=== PATIENT | male | born 1990 | race Two or more races ===

== ENCOUNTER 2016-12-09 16:33 | Emergency (ER) | payer MEDICAID ==
--- NOTE | 2016-12-09 16:58 | ED Physician Chart ---
Chief Complaint/HPI - Patient Information Date Seen:: 12/09/16 Time Seen:: 16:57 Chief Complaint:: SORE THROAT x2 DATS History of Present Illness:: This 26 sure male presents with a sore throat that started 2 days ago and has progressively become more severe. Rates the pain as a 8/10 in severity and swallowing makes the pain worse. Describes it as a burning sensation. Pain is not been accompanied by any fever or chills. Does have nasal congestion and he is noted that his voice is raspy. Patient has a mild cough which is productive of clear phlegm. He denies any hemoptysis, shortness of breath or chest pain. Allergies:: Allergies Allergy/AdvReac Type Severity Reaction Status Date / Time Penicillins [PCN] AdvReac Verified 12/09/16 16:45 Vitals:: Vital Signs - 8 hr 12/09/16 12/09/16 16:47 16:48 Temp 98.5 F HR 130 RR 18 BP 129/87 129/87 O2 Sat % 96 Review of Systems - Review of Systems General/Constitutional: No fever, No chills Skin: No skin lesions, No rash Head: No headache, No light-headedness Eyes: No loss of vision, No diplopia ENT: No earache, No nasal drainage, Sore throat, No tinnitus, Other (feels stopped up.) Neck: No neck pain, No swelling, No stiffness, Mass noted Cardio Vascular: No chest pain, No palpitations, No edema Pulmonary: No SOB, Cough, Sputum, Other (sputum was clear.) GI: No pain G/U: No dysuria, No frequency, No hematuria Musculoskeletal: No bone or joint pain, No back pain, No muscle pain Psychiatric: Prior psych history, No suicidal ideation Hematopoietic: No bruising, No lymphadenopathy Allergic/Immuno: No urticaria, No angioedema Neurological: No syncope, No focal symptoms, No weakness, No paresthesia, No headache, No seizure, No confusion, No vertigo Past Medical History - Past Medical History Past Medical History: No significant medical hx (NO DM, HTN, HD, COPD, CHF) Social History: Non Smoker, No Alcohol (SMOKES MARIJUANA), Surgical History: None Psychiatricy History: None Medication: None Family Medical History - Family Member Mother Ethnicity: Living Status: Still Living Hx Family Hypertension: Yes Hx Family Diabetes: Yes Physical Exam - Physical Examination General/Constitutional: Alert, Ambulatory Other Gen/Cons comments:: Mild distress, morbidly obese. Head: Atraumatic Eyes: Lids, conjuctiva normal, PERRL, EOMI Skin: Nl inspection, No rash, No skin lesions, No ecchymosis, Well hydrated, No lymphadenopathy ENMT: External ears, nose nl Other ENMT comments:: Swollen nasal mucosa. The patient has mild erythema of the posterior pharynx and both tonsils. There is no tonsillar exudate or significant enlargement. No peritonsillar fullness or masses. The patient's voice is mildly hoarse. Neck: Nontender, No JVD, No nuchal rigidity, No mass, No stridor Respiratory: Nl effort/Exclusion, Clear to Auscultation (MILD TO MODERATE TACHYCARDIA, REGULAR), No Wheeze/Rhonchi/Rales Cardio Vascular: No murmur, gallop, rubs, NL S1 S2 GI: No tenderness/rebounding/guarding, No organomegaly, No hernia, Nondistended , No mass/bruits, No McBurney tenderness Other GI comments:: RECTAL EXAM DEFERRED AT MY DISCRETION : No CVA tenderness Extremities: No tenderness or effusion, Full ROM, normal strength in all extremities, No edema Neuro/Psych: Alert/oriented, Normal sensory exam, Normal motor strength, Judgement/insight normal, Mood normal, Normal gait, No focal deficits Misc: Normal back, No paraspinal tenderness Labs/Radiology/EKG Results - Lab Results Results: NO LAB OR RADIOGRAPHIC STUDIES Assessment - Assessment General Assessment: CASE SUMMARY: This 26 year old male presented wtih is a two day history of sore throat which is progressively becoming more severe. Patient reported no history of fever or chills and no difficulty breathing. On physical examination the patient was morbidly obese and appeared to be in moderate distress from throat pain. Symptoms were addressed with 10 mg of dexamethasone and 6 mg of morphine administered IM. The patient experienced significant decrease in pain and normalization of his pulse rate. The patient was discharged with a prescription for Woodside 10/325 for further pain. He was given the usual precautions regarding mixing it with alcohol, driving within six hours and events requiring alertness. Patient was advised to return to the emergency department for any significant worsening of his symptoms, difficulty breathing or chest pain. MDM DDX FOR SORE THROAT: NOT kaylie-tonsillar abscess based on physical exam. NOT Lemierre's syndrome based on no tenderness along the margins of the SCM muscle. NOT Epiglottis based on history and physical examination. ED Septic Shock - . Is Septic Shock (SBP<90, OR Lactate>4 mmol\L) present?: No - <6hrs of presentation: Vital Signs: Vital Signs - 8 hr 12/09/16 12/09/16 16:47 16:48 Temp 98.5 F HR 130 RR 18 BP 129/87 129/87 O2 Sat % 96 Reassessment (Disposition) - Reassessment Reassessment Condition:: Improved - Diagnosis Diagnosis:: VIRAL PHARYNGITIS. - Aftercare/Follow up Instructions Aftercare/Follow-Up Instructions:: Counseled pt regarding lab results/diagnosis & need follow up, Refer to Discharge Instructions Medication Prescribed:: Discharged with Rx for Woodside 10/325, dispense 8, take one q6h prn severe pain. Don't take it with alcohol and don't take it within 6 hours of driving or activities requiring alertness. ED Discharge Plan - Patient Disposition Admit/Discharge/Transfer: PT DISCHARGED HOME Condition at Disposition: Stable Prescriptions: Hydrocodone/APAP 10 mg/325 mg [Woodside 10 mg/325 mg] 1 tab PO Q6H PRN #0 tab PRN Reason: Pain (Severe) Instructions: Viral Pharyngitis
[2016-12-09 17:11] VITALS: BP 129/87
[2016-12-09] MEDS ORDERED: Dexamethasone Sodium Phos 4 mg/mL Vial IM STA (17:13)
[2016-12-09] MEDS ORDERED: Dexamethasone Sodium Phos 10 mg/mL PF Vial ONE (17:17)
== END 2016-12-09 18:20 | disposition home or self-care (01) ==
LOC: ER 16:33
DX: J02.8 Acute pharyngitis due to other specified organisms (principal); B97.89 Other viral agents as the cause of diseases classified elsewhere; F12.90 Cannabis use, unspecified, uncomplicated; Z88.0 Allergy status to penicillin
CPT/HCPCS: J2270; Z7502

== ENCOUNTER 2017-04-06 21:17 | Emergency (ER) | payer MEDICAID ==
--- NOTE | 2017-04-06 21:46 | ED Physician Chart ---
Chief Complaint/HPI - Patient Information Date Seen:: 04/06/17 Time Seen:: 21:30 Chief Complaint:: TOOTHACHE History of Present Illness:: THIS IS A 27 YO OBESE MALE WHO STATES THAT HE HAS HAD TOOTHACHES ON AND OFF FOR MONTHS. HE DENIES FEVER OR GUM BLEEDING. HE STATED THAT HE THINKS THAT IT IS PAIN FROM HIS WISDOM TOOTH ON THE RIGHT SIDE. Allergies:: Allergies Allergy/AdvReac Type Severity Reaction Status Date / Time Penicillins [PCN] AdvReac Verified 12/09/16 16:45 Vitals:: Vital Signs - 8 hr 04/06/17 21:20 Temp 97.9 F HR 104 RR 19 BP 151/101 O2 Sat % 98 Historian:: Patient Review:: Nurse's Note Reviewed, Old Chart Reviewed Review of Systems - Review of Systems General/Constitutional: No fever, No chills, No weight loss, No weakness, No diaphoresis, No edema, No loss of appetite Skin: No skin lesions, No rash, No bruising Head: No headache, No light-headedness Eyes: No loss of vision, No pain, No diplopia ENT: No earache, No nasal drainage, No sore throat, No tinnitus, Other ( TOOTHACHE) Neck: No neck pain, No swelling, No thyromegaly, No stiffness, No mass noted Cardio Vascular: No chest pain, No palpitations, No PND, No orthopnea, No edema Pulmonary: No SOB, No cough, No sputum, No wheezing GI: No nausea, No vomiting, No diarrhea, No pain, No melena, No hematochezia, No constipation, No hematemesis G/U: No dysuria, No frequency, No hematuria Musculoskeletal: No bone or joint pain, No back pain, No muscle pain Endocrine: No polyuria, No polydipsia Psychiatric: No prior psych history, No depression, No anxiety, No suicidal ideation Hematopoietic: No bruising, No lymphadenopathy Allergic/Immuno: No urticaria, No angioedema Neurological: No syncope, No focal symptoms, No weakness, No paresthesia, No headache, No seizure, No dizziness, No confusion, No vertigo Past Medical History - Past Medical History Obtainable: Yes Past Medical History: Other (OBESITY) Family History: Heart disease, Diabetes Melitus, HTN Social History: Non Smoker, No Alcohol, Illicit Drug Use (THC) Surgical History: None Psychiatricy History: None Medication: Reviewed Family Medical History - Family Member Mother History Unknown: Yes Ethnicity: Living Status: Still Living Hx Family Hypertension: Yes Hx Family Diabetes: Yes Physical Exam - Physical Examination General/Constitutional: Awake, Well-developed, well-nourished, Alert, No distress, GCS 15, Non-toxic appearing, Ambulatory Head: Atraumatic Eyes: Lids, conjuctiva normal, PERRL, EOMI Skin: Nl inspection, No rash, No skin lesions, No ecchymosis, Well hydrated, No lymphadenopathy ENMT: External ears, nose nl, Nasal exam nl, Lips, teeth, gums nl (SWOLLEN GUMS AROUND THE RIGHT LOWER WISDOM TOOTH AREA.) Neck: Nontender, Full ROM w/o pain, No JVD, No nuchal rigidity, No bruit, No mass, No stridor Respiratory: Nl effort/Exclusion, Clear to Auscultation, No Wheeze/Rhonchi/Rales Cardio Vascular: RRR, No murmur, gallop, rubs, NL S1 S2 GI: No tenderness/rebounding/guarding, No organomegaly, No hernia, Normal BS's, Nondistended, No mass/bruits, No McBurney tenderness : No CVA tenderness Extremities: No tenderness or effusion, Full ROM, normal strength in all extremities, No edema, Normal digits & nails Neuro/Psych: Alert/oriented, DTR's symmetric, Normal sensory exam, Normal motor strength, Judgement/insight normal, Mood normal, Normal gait, No focal deficits Misc: normal gait, Normal back, No paraspinal tenderness Assessment - Assessment General Assessment: TOOTHACHE ED Septic Shock - . Is Septic Shock (SBP<90, OR Lactate>4 mmol\L) present?: No - <6hrs of presentation: Vital Signs: Vital Signs - 8 hr 04/06/17 21:20 Temp 97.9 F HR 104 RR 19 BP 151/101 O2 Sat % 98 Reassessment (Disposition) - Reassessment Reassessment Condition:: Unchanged - Diagnosis Diagnosis:: TOOTH ACHE - Aftercare/Follow up Instructions Aftercare/Follow-Up Instructions:: Counseled pt regarding lab results/diagnosis & need follow up, Refer to Discharge Instructions, Counseled pt & family regarding lab results/diagnosis & need follow up - Patient Disposition Discharge/Transfer:: Home Condition at Disposition:: Unchanged ED Discharge Plan - Patient Disposition Admit/Discharge/Transfer: PT DISCHARGED HOME Condition at Disposition: Unchanged
== END 2017-04-06 22:15 | disposition home or self-care (01) ==
LOC: ER 21:17
DX: K08.89 Other specified disorders of teeth and supporting structures (principal); Z88.0 Allergy status to penicillin
CPT/HCPCS: Z7502

== ENCOUNTER 2017-04-18 16:33 | Emergency (ER) | payer MEDICAID ==
--- NOTE | 2017-04-18 16:56 | ED Physician Chart ---
Chief Complaint/HPI - Patient Information Date Seen:: 04/18/17 Time Seen:: 16:40 Chief Complaint:: Hearing Loss History of Present Illness:: onset x 8 hours of right ear hearing loss after using a Q-Tip in his right Ear this am; pt admits to Right Earache x 3 days; pt denies H/As, S/T, congestion; cough, fever, chills, Neck pain, C/P, SOB, Abd. pain, A/N/V/D/C, tinnitus, dizziness, vertigo, weakness, or urinary s/s Allergies:: Allergies Allergy/AdvReac Type Severity Reaction Status Date / Time Penicillins [PCN] AdvReac Verified 12/09/16 16:45 Vitals:: Vital Signs - 8 hr 04/18/17 16:39 Temp 99.0 F HR 104 RR 18 BP 140/74 O2 Sat % 99 Historian:: Patient Review:: Nurse's Note Reviewed Review of Systems - Review of Systems General/Constitutional: Fever, No chills, No weight loss, No weakness, No diaphoresis, No edema, No loss of appetite Skin: No skin lesions, No rash, No bruising Head: No headache, No light-headedness Eyes: No loss of vision, No pain, No diplopia ENT: Earache, Nasal drainage, No sore throat, No tinnitus Neck: No neck pain, No swelling, No thyromegaly, No stiffness, No mass noted Cardio Vascular: No chest pain, No palpitations, No PND, No orthopnea, No edema Pulmonary: No SOB, Cough, No sputum, No wheezing GI: Nausea, Vomiting, Diarrhea, No pain, No melena, No hematochezia, No constipation, No hematemesis G/U: No dysuria, No frequency, No hematuria Musculoskeletal: No bone or joint pain, No back pain, No muscle pain Endocrine: No polyuria, No polydipsia Psychiatric: No prior psych history, No depression, No anxiety, No suicidal ideation Hematopoietic: No bruising, No lymphadenopathy Allergic/Immuno: No urticaria, No angioedema Neurological: No syncope, No focal symptoms, No weakness, No paresthesia, No headache, No seizure, No dizziness, No confusion, No vertigo Past Medical History - Past Medical History Obtainable: Yes Past Medical History: No significant medical hx Family History: HTN Social History: Non Smoker, No Alcohol, No Drug Use, Single Surgical History: None Psychiatricy History: None Medication: Reviewed Family Medical History - Family Member Mother History Unknown: Yes Ethnicity: Living Status: Still Living Hx Family Hypertension: Yes Hx Family Diabetes: Yes Physical Exam - Physical Examination General/Constitutional: Awake, Well-developed, well-nourished, Alert, No distress, GCS 15, Non-toxic appearing, Ambulatory Head: Atraumatic Eyes: Lids, conjuctiva normal, PERRL, EOMI Skin: Nl inspection, No rash, No skin lesions, No ecchymosis, Well hydrated, No lymphadenopathy ENMT: External ears, nose nl, Nasal exam nl, Lips, teeth, gums nl, Oropharynx nl , Tonsils nl Other ENMT comments:: Right Ear: TM: dull, perforated, and injected; no FBs; Left Ear: WNL + Right Ear Decreased Hearing vs Left Ear Neck: Nontender, Full ROM w/o pain, No JVD, No nuchal rigidity, No bruit, No mass, No stridor Respiratory: Nl effort/Exclusion, Clear to Auscultation, No Wheeze/Rhonchi/Rales Cardio Vascular: RRR, No murmur, gallop, rubs, NL S1 S2 GI: No tenderness/rebounding/guarding, No organomegaly, No hernia, Normal BS's, Nondistended, No mass/bruits, No McBurney tenderness : No CVA tenderness Extremities: No tenderness or effusion, Full ROM, normal strength in all extremities, No edema, Normal digits & nails Neuro/Psych: Alert/oriented, DTR's symmetric, Normal sensory exam, Normal motor strength, Judgement/insight normal, Mood normal, Normal gait, No focal deficits Misc: normal gait, Normal back, No paraspinal tenderness ED Septic Shock - . Is Septic Shock (SBP<90, OR Lactate>4 mmol\L) present?: No - <6hrs of presentation: Vital Signs: Vital Signs - 8 hr 04/18/17 16:39 Temp 99.0 F HR 104 RR 18 BP 140/74 O2 Sat % 99 Reassessment (Disposition) - Reassessment Reassessment Condition:: Improved - Diagnosis Diagnosis:: Right Perforated Ear Drum/Tympanic Membrane; Hearing Loss; Earaches; Otitis Media - Aftercare/Follow up Instructions Aftercare/Follow-Up Instructions:: Counseled pt regarding lab results/diagnosis & need follow up, Refer to Discharge Instructions, Counseled pt & family regarding lab results/diagnosis & need follow up Medication Prescribed:: Rx: Levaquin 500mg po qd x 10 days; Use no Q-Tips and/or any objects in the ears ; no swimming - Patient Disposition Discharge/Transfer:: Home Condition at Disposition:: Stable, Improved (RTER prn if existing s/s reoccur and/or get worse and/or any other new s/s occur; Refer to ENT Specialist YANICK; ACIs given for all above Dx; F/U with PMD in one day or prn; RTER prn if concerned) ED Discharge Plan - Patient Disposition Prescriptions: Levofloxacin [Levaquin] 500 mg PO DAILY #10 tab Instructions: Eardrum Perforation, [id number] Additional Instructions: Pls follow up with primary doctor for ENT referral as soon as possible.
== END 2017-04-18 16:55 | disposition home or self-care (01) ==
LOC: ER 16:33
DX: H91.91 Unspecified hearing loss, right ear (principal); H92.01 Otalgia, right ear; H66.91 Otitis media, unspecified, right ear; Z88.0 Allergy status to penicillin
CPT/HCPCS: Z7502

== ENCOUNTER 2017-04-20 01:47 | Emergency (ER) | payer MEDICAID ==
--- NOTE | 2017-04-20 02:18 | ED Physician Chart ---
Chief Complaint/HPI - Patient Information Date Seen:: 04/20/17 Time Seen:: 02:05 Chief Complaint:: right lower mandibular pain and right ear pain History of Present Illness:: Patient said right lower mandibular pain for the last 2 months and right ear pain for the last 2 days. Allergies:: Allergies Allergy/AdvReac Type Severity Reaction Status Date / Time Penicillins [PCN] AdvReac Verified 12/09/16 16:45 Vitals:: Vital Signs - 8 hr 04/20/17 01:50 Temp 98.2 F HR 99 RR 17 BP 145/96 O2 Sat % 98 Historian:: Patient Review:: Nurse's Note Reviewed Review of Systems - Review of Systems General/Constitutional: No fever, No chills Skin: No skin lesions Head: No headache Eyes: No loss of vision ENT: Earache, Other (see history and physical) Neck: No neck pain Cardio Vascular: No chest pain, No palpitations Pulmonary: No SOB GI: No nausea, No vomiting G/U: No dysuria Musculoskeletal: No bone or joint pain Endocrine: No polyuria, No polydipsia Psychiatric: No prior psych history Hematopoietic: No bruising Allergic/Immuno: No urticaria Neurological: No syncope, No focal symptoms Family Medical History - Family Member Mother History Unknown: Yes Ethnicity: Living Status: Still Living Hx Family Hypertension: Yes Hx Family Diabetes: Yes Physical Exam - Physical Examination General/Constitutional: Well-developed, well-nourished, Alert Head: Atraumatic Eyes: Lids, conjuctiva normal, PERRL Skin: Nl inspection, No rash ENMT: External ears, nose nl, TM canals nl, Nasal exam nl, Oropharynx nl, Tonsils nl Other ENMT comments:: Right lower wisdom tooth impacted; surrounding gum is tender Neck: No nuchal rigidity Respiratory: Nl effort/Exclusion, Clear to Auscultation Cardio Vascular: RRR, No murmur, gallop, rubs GI: No tenderness/rebounding/guarding : No CVA tenderness Extremities: No tenderness or effusion, Normal digits & nails Neuro/Psych: No focal deficits Assessment - Assessment General Assessment: Pain from the impacted right lower wisdom tooth appears to be radiating to the right ear. ED Septic Shock - . Is Septic Shock (SBP<90, OR Lactate>4 mmol\L) present?: No - <6hrs of presentation: Vital Signs: Vital Signs - 8 hr 04/20/17 01:50 Temp 98.2 F HR 99 RR 17 BP 145/96 O2 Sat % 98 Reassessment (Disposition) - Reassessment Reassessment Condition:: Improved - Diagnosis Diagnosis:: Impacted wisdom tooth; periodontal abscess - Aftercare/Follow up Instructions Aftercare/Follow-Up Instructions:: Refer to Discharge Instructions Medication Prescribed:: Prescriptions for erythromycin 500 mg 4 times a day for 10 days and ibuprofen 400 mg #20 to take 1 3 times a day - Patient Disposition Discharge/Transfer:: Home Condition at Disposition:: Stable, Unchanged
== END 2017-04-20 02:25 | disposition home or self-care (01) ==
LOC: ER 01:47
DX: K05.219 Aggressive periodontitis, localized, unspecified severity (principal); K01.1 Impacted teeth; Z88.0 Allergy status to penicillin
CPT/HCPCS: 99283; 96372; J1885; Z7502